=== PATIENT | female | born 1940 ===

== ENCOUNTER 2018-05-28 15:54 | Emergency (ER) | payer MEDICARE, MEDICAID ==
[2018-05-28 16:06] VITALS: BP 136/71; PULSE 85; RESP 18; TEMP 98.8; O2SAT 99
[2018-05-28 16:30] VITALS: BMI 39.0
--- NOTE | 2018-05-28 17:28 | CT ---
Date of service: 05/28/2018 PROCEDURE: CT HEAD WITHOUT CONTRAST. HISTORY: fall, Frontal contusion (minor) COMPARISON: None available. TECHNIQUE: Axial computed tomography images were obtained through the head/brain without intravenous contrast. Radiation dose: Total exam DLP = mGy-cm. This CT exam was performed using one or more of the following dose reduction techniques: Automated exposure control, adjustment of the mA and/or kV according to patient size, and/or use of iterative reconstruction technique. FINDINGS: HEMORRHAGE: No intracranial hemorrhage. BRAIN: Good corticomedullary differentiation is seen. Proportional, diffuse expansion of the ventriculosulcal and cisternal spaces is appreciated with white matter lucency compatible with diffuse cerebral atrophy and chronic microangiopathy. No suspicious extra-axial fluid collection is identified and the midline brain anatomy appears grossly nonfocal as imaged. There is no mass effect throughout. There is a near empty sella. VENTRICLES: Unremarkable. No hydrocephalus. CALVARIUM: No destructive bony lesion or displaced fracture identified including through the skullbase. PARANASAL SINUSES: Unremarkable as visualized. No significant inflammatory changes. MASTOID AIR CELLS: Unremarkable as visualized. No inflammatory changes. OTHER FINDINGS: None. IMPRESSION: Limited age-related neuro degenerative findings without acute changes. No fracture identified.
--- NOTE | 2018-05-28 17:28 | C.PDOC ---
History Of Present Illness 78 year old female is brought to the ED by EMS and family after patient suffered a fall from sitting position earlier today. As per witness, patient fell, striking her forehead onto the ground and sustained a contusion to her right wrist and right knee. Patient and family deny loss of consciousness, nausea, vomiting. - HPI Time Seen by Provider: 05/28/18 16:12 Chief Complaint (Nursing): Trauma History Per: Patient, EMS, Family History/Exam Limitations: no limitations Onset/Duration Of Symptoms: Hrs Injury Occurred (Timing): Just Before Arrival Additional History Per: Patient, Family Past Medical History Reviewed: Historical Data, Nursing Documentation, Vital Signs Vital Signs: Last Vital Signs Temp 98.8 F 05/28/18 16:05 Pulse 85 05/28/18 16:05 Resp 18 05/28/18 16:05 BP 136/71 05/28/18 16:05 Pulse Ox 99 05/28/18 16:05 - Medical History PMH: No Chronic Diseases Surgical History: No Surg Hx Family History: States: Unknown Family Hx Review Of Systems Gastrointestinal: Negative for: Nausea, Vomiting Skin: Positive for: Other (fell striking forehead to the ground, contusion to right wrist and right knee) Neurological: Negative for: Other (LOC ) Physical Exam - Physical Exam Appears: Non-toxic, No Acute Distress Skin: Normal Color, Warm, Dry Head: Other (superficial contusion to forehead. no ecchymosis or deformities ) Eye(s): bilateral: Normal Inspection Ear(s): Bilateral: Normal Nose: Normal, No Discharge Oral Mucosa: Moist Throat: Normal, No Erythema, No Exudate Neck: Supple Chest: Symmetrical, No Deformity, No Tenderness Respiratory: Normal Breath Sounds, No Rales, No Rhonchi, No Wheezing Extremity: Normal ROM, Tenderness (minor, to right wrist ), Capillary Refill (less than 2 seconds ), No Deformity, Other (minor, to right knee ) Neurological/Psych: Oriented x3, Normal Speech, Normal Cognition ED Course And Treatment O2 Sat by Pulse Oximetry: 99 (on RA ) Pulse Ox Interpretation: Normal - Other Rad R wrist X-Ray: Interpreted by Me (neg) R knee X-Ray: Interpreted by Me (neg) - CT Scan/US head CT Other Rad Studies (CT/US): Interpreted By Me, Radiology Report Reviewed (no acute injuries) Progress Note: CT Head, Right knee XR, Right wrist XR ordered and reviewed. Motrin PO given. Reevaluation Time: 17:29 Reassessment Condition: Improved Medical Decision Making Medical Decision Making: Frontal head, and R wrist/knee contusions, CT/films neg ice /NSAIDS educated. Disposition Doctor Will See Patient In The: Office Counseled Patient/Family Regarding: Studies Performed, Diagnosis - Disposition Referrals: Manpreet Jay MD [Medical Doctor] - Disposition: HOME/ ROUTINE Disposition Time: 17:30 Condition: GOOD Additional Instructions: ice packs 1/2 hour per hour, nothing hot Motrin/Advil/Ibuprofen 400 mg every 6 hours as needed for local pain outpatient follow-up as needed CT of HEAD negative x-ray films of R wrist and R knee are NEGATIVE Instructions: Wrist Sprain (DC), Contusion (DC), Head Injury Observation (DC) Forms: [employer] (Spanish) - Clinical Impression Clinical Impression: Contusion, Head injuries, Right wrist sprain - Scribe Statement The provider has reviewed the documentation as recorded by the Scribe (Stephanie Alexis) Provider Attestation: All medical record entries made by the Scribe were at my direction and personally dictated by me. I have reviewed the chart and agree that the record accurately reflects my personal performance of the history, physical exam, medical decision making, and the department course for this patient. I have also personally directed, reviewed, and agree with the discharge instructions and disposition.
--- NOTE | 2018-05-28 18:30 | RAD ---
Date of service: 05/28/2018 PROCEDURE: Right Knee Radiographs. HISTORY: FALL COMPARISON: None. FINDINGS: BONES: No acute fracture. Proliferative hypertrophic changes emanating from the femoral condyle and tibial plateau regions. JOINTS: Medial lateral compartment degenerative change. JOINT EFFUSION: None. OTHER FINDINGS: None. IMPRESSION: No acute findings related to/accounting for the clinical presentation. Additional benign and/or incidental findings described above. Concordant results with the preliminary interpretation rendered by the emergency department physician procedure.
--- NOTE | 2018-05-28 19:23 | RAD ---
Date of service: 05/28/2018 PROCEDURE: Right Wrist Radiographs. HISTORY: foosh COMPARISON: None. FINDINGS: BONES: Extensive diffuse osteopenia suggests advanced osteoporosis. Clinically correlate. Gross joint space narrowing and articular cortical sclerosis is identified throughout the carpal metacarpal and carpal carpal as well as radiocarpal joints with pseudoarticulation having developed at between the ulna and proximal medial carpus. There is gross osteophyte development at this pseudoarticulation. Findings compatible with advanced osteoarthritis. No displaced fractures identified. Note, evaluation of the navicular bone is compromised by extensive demineralization and obscuring by osteo arthritic changes. JOINTS: No subluxation or dislocation. Incidental advanced degenerative changes seen throughout the 1st through 3rd metacarpal phalangeal joints. SOFT TISSUES: Normal. OTHER FINDINGS: None. IMPRESSION: Diffuse osteopenia suggests advanced osteoporosis and limits evaluation of nondisplaced fractures. No gross fracture or dislocation is identified throughout the right wrist. No subluxation or dislocation. Diffuse advanced osteoarthritis seen throughout the right wrist as described above as well as at the 1st through 3rd metacarpal phalangeal joints incidentally.
[2018-05-29] MEDS ORDERED: Potassium Chloride 10 mEq ER Tab PO ONE (10:12)
== END 2018-05-28 18:13 | disposition home or self-care (01) ==
LOC: C.ER 15:54
DX: S00.83XA Contusion of other part of head, initial encounter (principal); S60.211A Contusion of right wrist, initial encounter; S80.01XA Contusion of right knee, initial encounter; S63.501A Unspecified sprain of right wrist, initial encounter; W07.XXXA Fall from chair, initial encounter; Y92.89 Other specified places as the place of occurrence of the external cause